=== PATIENT | female | born 1945 | race African-American/Black ===

== ENCOUNTER 2023-07-30 14:49 | Inpatient (IN) | payer MEDICARE, OTHER ==
[~2023-07-30] VITALS: Ht 157.5 cm; Wt 69.9 kg
[2023-07-30] MEDS ORDERED: ATOR20TA PO (15:01)
[2023-07-30] MEDS ORDERED: ARIP5TAB10 PO (15:01)
[2023-07-30] MEDS ORDERED: METF-886 PO (15:01)
[2023-07-30 15:43] VITALS: BP 104/53; TEMP 98.4; O2SAT 96
[2023-07-30] MEDS ORDERED: ACETAMINOPHEN 325 MG TABLET PO PRN (17:00)
[2023-07-30] MEDS ORDERED: LORAZEPAM 0.5 MG TABLET PO PRN (17:00)
[2023-07-30] MEDS ORDERED: TEMAZEPAM 7.5 MG CAPSULE PO PRN (17:00)
[2023-07-30] MEDS ORDERED: MAG HYDROX/AL HYDROX/SIMETH 30 ML LIQUID UDC PO PRN (17:00)
[2023-07-30] MEDS ORDERED: MAGNESIUM HYDROXIDE 30 ML LIQUID UDC PO PRN (17:00)
[2023-07-30 19:45] VITALS: BP 112/60; TEMP 98.2; O2SAT 95
[2023-07-31 07:54] VITALS: BP 140/58; TEMP 97.6; O2SAT 98
[2023-07-31] MEDS: NICOTINE 21 MG/24HR PATCH TD SCH (08:53)
[2023-07-31] MEDS ORDERED: METFORMIN XR 500 MG TAB.SR.24H PO SCH (09:00)
[2023-07-31] MEDS: ARIPIPRAZOLE 5 MG TABLET PO SCH ×2 (10:47→20:34)
[2023-07-31 16:30] VITALS: BP 99/78; TEMP 97.8; O2SAT 98
[2023-07-31 20:00] VITALS: BP 134/53; TEMP 98; O2SAT 99
[2023-07-31] MEDS ORDERED: ATORVASTATIN 20 MG TABLET PO SCH (21:00)
[2023-08-01 09:27] VITALS: BP 143/64; TEMP 98.2; O2SAT 98
[2023-08-01 15:14] VITALS: BP 123/61; TEMP 98.2; O2SAT 98
[2023-08-01] MEDS: ARIPIPRAZOLE 5 MG TABLET PO SCH ×2 (16:44→20:18)
[2023-08-01 20:58] VITALS: BP 132/58; TEMP 98; O2SAT 98
[2023-08-02 07:11] VITALS: BP 121/61; TEMP 98; O2SAT 99
[2023-08-02 15:58] VITALS: BP 124/54; TEMP 98; O2SAT 98
[2023-08-02 20:00] VITALS: BP 118/50; TEMP 98.2; O2SAT 96
[2023-08-02] MEDS: ARIPIPRAZOLE 5 MG TABLET PO SCH (21:06)
[2023-08-03 07:30] VITALS: BP 150/52; TEMP 98.2; O2SAT 98
[2023-08-03 15:12] VITALS: BP 140/59; TEMP 98; O2SAT 98
[2023-08-03 20:00] VITALS: BP 154/60; TEMP 98.1; O2SAT 97
[2023-08-04 07:53] VITALS: BP 141/51; TEMP 98.2; O2SAT 98
[2023-08-04 15:07] VITALS: BP 126/51; TEMP 98; O2SAT 98
[2023-08-04 20:00] VITALS: BP 140/48; TEMP 98; O2SAT 100
[2023-08-05 07:53] VITALS: BP 137/70; TEMP 98.2; O2SAT 97
[2023-08-05 16:10] VITALS: BP 133/56; TEMP 98; O2SAT 98
[2023-08-05 20:18] VITALS: BP 143/59; TEMP 98.2; O2SAT 99
[2023-08-06 09:05] VITALS: BP 137/55; TEMP 98.1; O2SAT 98
[2023-08-06 15:59] VITALS: BP 135/87; TEMP 98; O2SAT 98
[2023-08-06 20:00] VITALS: BP 136/55; TEMP 97.9; O2SAT 98
[2023-08-07 08:17] VITALS: BP 117/54; TEMP 98.1; O2SAT 98
[2023-08-07] MEDS: GLUCERNA SHAKE 237 ML CAN PO SCH (09:00)
[2023-08-07 16:31] VITALS: BP 148/50; TEMP 98; O2SAT 98
[2023-08-07 20:00] VITALS: BP 129/60; TEMP 98.3; O2SAT 98
[2023-08-08 07:47] VITALS: BP 118/52; TEMP 98; O2SAT 100
[2023-08-08 15:43] VITALS: BP 136/67; TEMP 98.2; O2SAT 96
[2023-08-08] MEDS: ARIPIPRAZOLE 5 MG TABLET PO SCH (17:15)
[2023-08-08 20:00] VITALS: BP 150/62; TEMP 98.3; O2SAT 96
[2023-08-09 08:03] VITALS: BP 137/64; TEMP 98; O2SAT 96
[2023-08-09 15:41] VITALS: BP 135/49; TEMP 98; O2SAT 98
[2023-08-09 19:44] VITALS: BP 132/59; TEMP 98.1; O2SAT 96
[2023-08-10 07:59] VITALS: BP 128/56; TEMP 98.2; O2SAT 96
[2023-08-10 15:14] VITALS: BP 136/77; TEMP 98; O2SAT 99
[2023-08-10] MEDS: ARIPIPRAZOLE 10 MG TABLET PO SCH (17:52)
[2023-08-10 19:53] VITALS: BP 126/62; TEMP 98.2; O2SAT 98
[2023-08-11 07:30] VITALS: BP 141/54; TEMP 98; O2SAT 92
[2023-08-11 15:58] VITALS: BP 119/54; TEMP 98; O2SAT 98
[2023-08-11 20:49] VITALS: BP 130/52; TEMP 98.1; O2SAT 94
[2023-08-12 07:09] LABS: BASOPHILS # (AUTO) 0.1 K/UL (0.0-0.2); BASOPHILS % (AUTO) 1.4 % (0.0-2.0); EOSINOPHILS # (AUTO) 0.2 K/uL (0.0-0.7); EOSINOPHILS % (AUTO) 3.1 % (0.0-7.0); HEMATOCRIT 35.4 % (31.2-41.9); HEMOGLOBIN 12.1 g/dL (10.9-14.3); LYMPHOCYTES # (AUTO) 2.1 K/uL (0.8-4.8); LYMPHOCYTES % (AUTO) 27.5 % (20.5-51.5); MEAN CORPUSCULAR HEMOGLOBIN 32.6 uug (24.7-32.8); MEAN CORPUSCULAR HGB CONC 34 g/dL (32.3-35.6); MEAN CORPUSCULAR VOLUME 95.8 fL (75.5-95.3); MONOCYTES # (AUTO) 0.6 K/uL (0.1-1.30); MONOCYTES % (AUTO) 8.6 % (0.0-11.0); NEUTROPHILS # (AUTO) 4.5 K/uL (1.8-8.9); NEUTROPHILS % (AUTO) 59.4 % (38.5-71.5); PLATELET COUNT (AUTO) 184 K/uL (179-408); RED BLOOD CELL COUNT(AUTO) 3.69 MIL/uL (3.63-4.92); RED CELL DISTRIBUTION WIDTH 13.6 % (12.3-17.7); WHITE BLOOD COUNT (AUTO) 7.5 K/uL (3.8-11.8)
[2023-08-12 07:32] LABS: ALANINE AMINOTRANSFERASE 22 U/L (14-59); ALBUMIN 3.7 g/dL (3.4-5.0); ALKALINE PHOSPHATASE 71 U/L (50-136); ASPARTATE AMINOTRANSFERASE 11 U/L (15-37); BILIRUBIN,TOTAL 0.4 mg/dL (0.2-1.0); CALCIUM 9.5 mg/dL (8.5-10.1); CARBON DIOXIDE 30 mmol/L (21-32); CHLORIDE 106 mmol/L (98-107); CREATININE 0.9 mg/dL (0.6-1.3); GLUCOSE 128 mg/dL (74-106); POTASSIUM 4.2 mmol/L (3.5-5.1); SODIUM SERUM 142 mmol/L (136-145); TOTAL PROTEIN, SERUM 7.6 g/dL (6.4-8.2); UREA NITROGEN, BLOOD 22 mg/dL (7-18)
[2023-08-12 07:36] VITALS: BP 158/53; TEMP 97.9; O2SAT 98
[2023-08-12 16:26] VITALS: BP 110/50; TEMP 98; O2SAT 98
[2023-08-12 20:00] VITALS: BP 138/60; TEMP 98.4; O2SAT 98
[2023-08-12] MEDS: OLANZAPINE ZYDIS 5 MG TAB.RAPDIS PO SCH (21:13)
[2023-08-13 08:04] VITALS: BP 121/54; TEMP 98.4; O2SAT 98
[2023-08-13] MEDS ORDERED: MUPIROCIN 2% OINT 22 GM TUBE NS SCH (09:00)
[2023-08-13 16:41] VITALS: BP 98/64; TEMP 98.3; O2SAT 98
[2023-08-13 19:47] VITALS: BP 111/58; TEMP 98.2; O2SAT 96
[2023-08-14 07:34] VITALS: BP 131/50; TEMP 98.1; O2SAT 97
[2023-08-14 16:05] VITALS: BP 142/54; TEMP 98; O2SAT 97
[2023-08-14 19:51] VITALS: BP 136/52; TEMP 98.1; O2SAT 96
[2023-08-15 07:37] VITALS: BP 133/74; TEMP 98.2; O2SAT 99
[2023-08-15 15:25] VITALS: BP 162/72; TEMP 98; O2SAT 98
[2023-08-15 20:00] VITALS: BP 137/70; TEMP 98; O2SAT 98
[2023-08-16 07:30] VITALS: BP 169/68; TEMP 97.8; O2SAT 99
[2023-08-16 14:45] VITALS: BP 114/81; TEMP 98; O2SAT 99
[2023-08-16 15:23] VITALS: BP 114/81; TEMP 98; O2SAT 99
[2023-08-16] MEDS ORDERED: ARIPIPRAZOLE 10 MG TABLET PO SCH (17:00)
[2023-08-16] MEDS ORDERED: ARIPIPRAZOLE 5 MG TABLET PO SCH (17:00)
[2023-08-16] MEDS ORDERED: OLANZAPINE ZYDIS 5 MG TAB.RAPDIS PO SCH (21:00)
== END 2023-08-16 16:15 | DRG 885 ==
LOC: ER 14:51 → GPS 15:11
PROVIDERS: ADMIT Psychiatry & Neurology Psychosomatic Medicine; ATTEND Nurse Practitioner Acute Care
DX: F20.9 Schizophrenia, unspecified (principal); E66.9 Obesity, unspecified; Z68.30 Body mass index [BMI] 30.0-30.9, adult; F10.10 Alcohol abuse, uncomplicated; E11.9 Type 2 diabetes mellitus without complications; E78.5 Hyperlipidemia, unspecified; I10 Essential (primary) hypertension; F17.210 Nicotine dependence, cigarettes, uncomplicated; Z91.148 Patient's other noncompliance with medication regimen for other reason; R41.9 Unspecified symptoms and signs involving cognitive functions and awareness
CPT/HCPCS: 36415; 85025